=== PATIENT | male | born 1990 | race Two or more races ===

== ENCOUNTER 2025-06-25 13:09 | Emergency (ER) | payer MEDICAID ==
[~2025-06-25] VITALS: Ht 180.3 cm; Wt 147.9 kg
[2025-06-25 13:11] VITALS: BP 146/102; RESP 18; TEMP 97; O2SAT 98
[2025-06-25] MEDS ORDERED: HYDROcodone-ACET 10/325MG TAB PO ONE (13:30)
[2025-06-25] MEDS ORDERED: hydrALAZINE HCL 20 MG/ML VL IV ONE (13:30)
--- NOTE | 2025-06-25 13:36 | ED.PDOC ---
HPI (NEURO) HPI Comments 35y M who presents to the ED for chief complaint of headache. Pt states he has been having headache for the past 2x hours. Pt states the headache is located by her frontal area, constant, non-radiating, pressure like in nature, rating the pain 9/10, with no associated exacerbating or relieving factors. Pt has associated blurred vision, and chills but denies any other symptoms. Pt has noted BP of 146/102 with otherwise stable vitals. Pt is ax0x4 in the ED. Chief Complaint: Headache Time Seen by MD: 13:33 Reviewed Notes: Nurses Notes, Medications, Allergies Information Source: Patient Mode of Arrival: Ambulatory Brought in by: self Severity: Moderate Dizziness/Weakness Severity: Does not affect activitie Headache Severity: Severe Timing: Hours Duration: Since onset Prehospital treatment: None Headache Location: Frontal Onset: At rest Circumstances: Spontaneous Symptoms: Weakness, Other (blurred vision) History of: Hypertension Modifying factors: Nothing Associated Signs and Symptoms: Headache Past Medical History PAST MEDICAL HISTORY: High Lipids, HTN Surgical History: Denies all surgeries Family History Family History: Reviewed,noncontributory to illness Social History Smoker: Non-Smoker Alcohol: Denies ETOH Use Drugs: Marijuana Lives In: Home Constitutional: denies: chills, diaphoresis, fatigue, fever, malaise, sweats, weakness, others EENTM: denies: blurred vision, double vision, ear bleeding, ear discharge, ear drainage, ear pain, ear ringing, eye pain, eye redness, hearing loss, mouth pain, mouth swelling, nasal discharge, nose bleeding, nose congestion, nose pain, photophobia, tearing, throat pain, throat swelling, voice changes, others Respiratory: denies: cough, hemoptysis, orthopnea, SOB at rest, shortness of breath, SOB with excertion, stridor, wheezing, others Cardiovascular: denies: chest pain, dizzy spells, diaphoresis, Dyspnea on exertion, edema, irregular heart beat, left arm pain, lightheadedness, palpita tions, PND, syncope, others Gastrointestinal: denies: abdomen distended, abdominal pain, blood streaked catherine wels, constipated, diarrhea, dysphagia, difficulty swallowing, hematemesis, melena, nausea, poor appetite, poor fluid intake, rectal bleeding, rectal pain, vomiting, others Genitourinary: denies: burning, dysuria, flank pain, frequency, hematuria, incontinence, penile discharge, penile sore, pain, testicle pain, testicle swelling, urgency, others Neurological: reports: headache, others (blurred vision); denies: dizziness, fainting, left sided numbness, left sided weakness, numbness, paresthesia, pre- existing deficit, right sided numbness, right sided weakness, seizure, speech problems, tingling, tremors, weakness Musculoskeletal: denies: back pain, gout, joint pain, joint swelling, muscle pain, muscle stiffness, neck pain, others Integumetry: denies: bruises, change in color, change in hair/nails, dryness, laceration, lesions, lumps, rash, wounds, others Allergic/Immunocompromised: denies: Difficulty Healing, Frequent Infections, Hives, Itching, others Hematologic/Lymphatic: denies: anemia, blood clots, easy bleeding, easy bruising, swollen glands, others Endocrine: denies: excessive hunger, excessive sweating, excessive thirst, excessive urination, flushing, intolerance to cold, intolerance to heat, unexplained weight gain, unexplained weight loss, others Psychiatric: denies: anxiety, bipolar disorder, depression, hopeless, panic disorder, schizophrenia, sleepless, suicidal, others All Other Systems: Reviewed and Negative Physical Exam General Appearance: Moderate Distress, Obese HEENT: Normal ENT Inspection, Pharynx Normal, TMs Normal Neck: Full Range of Motion, Non-Tender, Normal, Normal Inspection Respiratory: Chest Non-Tender, Lungs Clear, No Accessory Muscle Use, No Respira tory Distress, Normal Breath Sounds Cardiovascular: No Edema, No JVD, No Murmur, No Gallop, Normal Peripheral Pulses, Regular Rate/Rhythm Breast Exam: Deferred Gastrointestinal: No Organomegaly, Non Tender, No Pulsatile Mass, Normal Bowel Sounds, Soft Genitalia: Deferred Pelvic: Deferred Rectal: Deferred Extremities: No calf tenderness, Normal capillary refill, Normal inspection, Normal range of motion, Non-tender, No pedal edema Musculoskeletal : Apperance: Normal Neurologic: Alert, project coach II-XII nml as Tested, Motor Weakness, Normal Affect, Normal Mood, No Sensory Deficits Cerebellar Function: Normal Reflexes: Normal Skin: Dry, Normal Color, Warm Lymphatic: No Adenopathy EKG EKG : Pulse Rate (adult): 99 [place]: Normal Cardiac Rhythm: NSR Block: None Hypertrophy: None ST: Normal Comments low voltage Was a procedure done? Was a procedure done?: No Differential Diagnosis (SZ) Seizure: N/A Headache: Migraine, Closed Head Injury, Sinusitis, Other (HTN urgency, ) X-Ray, Labs, Meds, VS Vital Signs Date Time Temp Pulse Resp B/P (MAP) Pulse Ox O2 Delivery O2 Flow Rate FiO2 06/25/25 13:37 99 06/25/25 13:19 88 06/25/25 13:11 97.0 90 18 146/102 98 97.0 Lab Test 06/25/25 14:00 Range/Units White Blood Count 15.4 H 4.4-10.8 10^3/uL Red Blood Count 6.04 H 4.5-5.90 10^6/uL Hemoglobin 17.0 13.5-17.5 g/dL Hematocrit 49.5 41.0-53.0 % Mean Corpuscular Volume 81.9 80.0-100.0 fL Mean Corpuscular Hemoglobin 28.1 28.0-32.0 pg Mean Corpuscular Hemoglobin Concent 34.4 32.0-36.0 g/dL Red Cell Distribution Width 13.2 11.8-14.3 % Platelet Count 328 140-450 10^3/uL Mean Platelet Volume 7.6 6.9-10.8 fL Neutrophils (%) (Auto) 82.9 H 37.0-80.0 % Lymphocytes (%) (Auto) 10.9 10.0-50.0 % Monocytes (%) (Auto) 4.3 0.0-12.0 % Eosinophils (%) (Auto) 1.3 0.0-7.0 % Basophils (%) (Auto) 0.6 0.0-2.0 % Neutrophils # (Auto) 12.8 H 1.6-8.6 10 ^3/uL Lymphocytes # (Auto) 1.7 0.4-5.4 10 ^3/uL Monocytes # (Auto) 0.7 0-1.3 10 ^3/uL Eosinophils # (Auto) 0.2 0-0.8 10 ^3/uL Basophils # (Auto) 0.1 0-0.2 10 ^3/uL Nucleated Red Blood Cells 0.0 % Sodium Level 142 136-145 mmol/L Potassium Level 3.6 3.5-5.1 mmol/L Chloride Level 101 98-107 mmol/L Carbon Dioxide Level 32 H 20-31 mmol/L Anion Gap 9 5-15 Blood Urea Nitrogen 8 L 9-23 mg/dL Creatinine 0.91 0.700-1.30 mg/dL Glomerular Filtration Rate Calc 113 >90 mL/min BUN/Creatinine Ratio 8.8 L 10.0-20.0 Serum Glucose 108 H 74-106 mg/dL Calcium Level 9.8 8.7-10.4 mg/dL PROCEDURE(s): HWOCT - HEAD WITHOUT CONTRAST IMPRESSION: NO ACUTE INTRACRANIAL ABNORMALITY SEEN. The patient was given medications for his elevated blood pressure The CBC shows an elevated white blood cell count of 15.4 The chemistry panel is within normal limits The patient is being admitted An IV Hep-Lock is being established. Images Reviewed?: Images reviewed and evaluated by me Time of 1ST Reevaluation: 14:00 Reevaluation 1ST: Unchanged Patient Education/Counseling: Diagnosis, Treatment Family Education/Counseling: No Family Present Departure 1 Departure Time of Disposition: 15:26 Impression: Primary Impression: Accelerated hypertension Disposition: ADMITTED INPATIENT Admit to: [facility] Condition: Fair Critical Care Note Critical Care Time?: No Stability Stability form required: No Heart Score Heart Score: Heart Score Response (Comments) Value History N/A 0 EKG N/A 0 Age N/A 0 Risk Factors N/A 0 Troponin N/A 0 Total 0 I personally scribed for FATIMAH PENG MD (ANETTE) on 06/25/25 at 13:36. Electronically submitted by Kacy Denson (HOLLY). I personally scribed for FATIMAH PENG MD (ANETTE) on 06/25/25 at 13:37. Electronically submitted by Kacy Denson (HOLLY). I personally scribed for FATIMAH PENG MD (ANETTE) on 06/25/25 at 15:23. Electronically submitted by Kacy RIBERA). FATIMAH PENG MD Jun 25, 2025 13:36
[2025-06-25 13:37] VITALS: PULSE 99
[2025-06-25 14:20] LABS: Hematocrit 49.5 % (41.0-53.0)
[2025-06-25 14:28] LABS: Chloride 101 mmol/L (98-107); Potassium 3.6 mmol/L (3.5-5.1); Sodium 142 mmol/L (136-145)
[2025-06-25 14:29] LABS: Anion Gap 9 (5-15); Calcium 9.8 mg/dL (8.7-10.4)
[2025-06-25 14:33] LABS: Carbon Dioxide 32 mmol/L (20-31)
[2025-06-25 14:34] LABS: BUN/Creatinine Ratio 8.8 (10.0-20.0)
[2025-06-25 14:43] LABS: Blood Urea Nitrogen 8 mg/dL (9-23); Glucose 108 mg/dL (74-106)
[2025-06-25 14:44] LABS: Hemoglobin 17.0 g/dL (13.5-17.5); Mean Corpuscular Hemoglobin 28.1 pg (28.0-32.0); Mean Corpuscular Volume 81.9 fL (80.0-100.0); Nucleated Red Blood Cells % 0.0 %
--- NOTE | 2025-06-25 15:17 | DVH ---
CLINICAL HISTORY: MATOS TECHNIQUE: Helical scanning was performed of the head from the skull base to the vertex. Multiplanar reconstructions were performed. This exam was performed according to our departmental dose optimization program. Up-to-date CT equipment and radiation dose reduction techniques are utilized as appropriate. CTDI 71 DLP 1401 COMPARISON: None FINDINGS: There is no evidence for acute intracranial hemorrhage, acute ischemic changes, mass, mass effect, or extra-axial fluid collection. There is no hydrocephalus or midline shift. There is no effacement of the cerebral sulci and basal subarachnoid cisterns. The luz-white matter differentiation is well maintained. The imaged paranasal sinuses demonstrates [id number] right maxillary sinus mucosal thickening. There is mild bilateral ethmoid air cell mucosal thickening. IMPRESSION: NO ACUTE INTRACRANIAL ABNORMALITY SEEN.
[2025-06-25 16:16] LABS: Urine Protein, UAD Negative (Negative)
--- NOTE | 2025-06-26 07:43 | ECG ---
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
== END 2025-06-25 17:43 | disposition left against medical advice (07) ==
LOC: ER 13:09
DX: I10 Essential (primary) hypertension (principal); R51.9 Headache, unspecified; E78.5 Hyperlipidemia, unspecified; H53.8 Other visual disturbances
CPT/HCPCS: 36415; 70450; 80048; 81001; 82947; 85025; 93005